=== PATIENT | male | born 1955 | race Caucasian/White ===

== ENCOUNTER 2022-01-22 01:38 | Outpatient (CLI) | payer MEDICARE, SELFPAY ==
--- NOTE | 2022-01-22 14:19 | DI.CT_ITS ---
Exam(s) CT SINUS WO EXAM: CT SINUS WO CLINICAL HISTORY: History of nasal polyps require extensive surgery,CONGESTION,ALLERGIC RHINI. Eval uate for sinusitis. TECHNIQUE: Imaging Protocol: Axial computed tomography images with coronal and sagittal reformatted images were created and reviewed. COMPARISON: No exams were available for comparison FINDINGS: AXIAL IMAGES: Frontal sinuses: There is mild mucosal thickening in the frontal sinuses. Ethmoid air cells: There is mild mucosal thickening in the ethmoid air cell cavities bilaterally. Maxillary sinuses: There is minimal mucosal thickening in the maxillary sinuses bilaterally. Sphenoid sinus: There is near complete opacification of the right sphenoid sinus. The left sphenoid sinus is clear. Ostiomeatal complexes: There has been resection of the ostiomeatal complexes. Osseous nasal septum: The nasal septum mildly deviates to the left. Visualized regional soft tissues: No acute findings. Orbits: Unremarkable. Bones: Postsurgical changes are seen with removal of the medial alvarado of the maxillary sinuses and th e floors of the ethmoid air cells. Mastoid Air Cells: Normally aerated. IMPRESSION: 1. Postsurgical changes in the paranasal sinuses as described above. 2. Mucosal thickening involving the paranasal sinuses. Near complete opacification of the right sphe noid sinus. RADIATION DOSE DELIVERED: 142.33mGy.cm Total DLP 142.33mGy.cm Total DLP DATA REPOSITORY: All CT scans at this facility are submitted to the National Radiology Data Registry (NRDR) Dose Index Registry (DIR) with the [employer] ([employer]). RADIATION OPTIMIZATION: All CT scans at this facility use at least one of these dose optimization te chniques: automated exposure control; mA and/or kV adjustment per patient size (includes targeted exa ms where dose is matched to clinical indication); or iterative reconstruction.
== END 2022-01-22 01:58 ==
PROVIDERS: PCP Family Medicine; Visit Provider Registered Nurse Maternal Newborn
DX: J30.9 Allergic rhinitis, unspecified (principal); J33.9 Nasal polyp, unspecified; R09.81 Nasal congestion
CPT/HCPCS: 70486